=== PATIENT | male | born 1995 | race Hispanic/Latino ===

== ENCOUNTER 2025-01-29 10:19 | Emergency (ER) | payer SELFPAY ==
[2025-01-29] MEDS ORDERED: ONDANSETRON 4 MG/2 ML VIAL ONE (10:31)
[2025-01-29] MEDS ORDERED: MORPHINE 4 MG/ML SYR ONE (10:32)
[2025-01-29 10:48] LABS: Absolute Basophils 0.1 K/uL (0-0.5); Absolute Eosinophils 0.2 K/uL (0-0.5); Absolute Lymphocytes (CBC) 2.6 K/uL (0.7-4.9); Absolute Monocytes 0.7 K/uL (0.1-1.3); Eosinophils % 1.8 % (0-4.4); Hematocrit 45.7 % (39.6-49.0); Hemoglobin 15.6 g/dL (13.6-17.9); Lymphocytes % 20.6 % (15.3-44.8); MCH 28.6 pg (27.0-35.0); MCHC 34.1 g/dL (32.0-36.0); MCV 83.7 fL (80-100); MPV 9.4 fL (7.6-11.3); Monocytes % 5.6 % (3.3-12.3); Platelets 231 thou/uL (152-406); RBC Red Blood Cell Count 5.46 M/uL (4.33-5.43); Red Cell Distribution Width 14.1 % (12.1-15.2)
[2025-01-29 10:57] LABS: PT Prothrombin Time 11.5 SECONDS (10-13.0); PTT, Activated Partial Thromb 28.1 SECONDS (27.2-37.4); Protime INR 1.01
[2025-01-29 11:07] LABS: Anion Gap 8.7 mEq/L (5.0-15.0); Potassium 3.7 mEq/L (3.5-5.1); Troponin High Sensitivity 5.3 pg/mL (<58.9)
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
[2025-01-29] MEDS ORDERED: HYDROMORPHONE HCL 1 MG/ML INJ ONE (11:36)
[2025-01-29] MEDS ORDERED: NA CHLORIDE 0.9% 1,000 ML ONE (11:37)
--- NOTE | 2025-01-29 11:42 | RAD REPORT ---
EXAMINATION: XR Foot Right 3 View CLINICAL INDICATION: Male, 30 years old. [facility] Bed Name: 7 TECHNIQUE: 3 view radiographs of the right foot were obtained. COMPARISON: No prior exam. FINDINGS: No evidence of fracture or dislocation. Normal alignment. No evidence of arthropathy or oth er focal bone lesion. Soft tissue swelling along the lateral forefoot. No significant degenerative changes. IMPRESSION: No acute osseous abnormalities. Lateral soft tissue swelling.
[2025-01-29 13:26] VITALS: TEMP 98
[2025-01-29 13:28] VITALS: BP 160/104; O2SAT 100
--- NOTE | 2025-01-30 10:50 | EKG ---
Test Date: 2025-01-29 Test Time: 10:32:00 Clinical Sciences Professor: CARLEE MEASUREMENT RESULTS: Intervals: Rate: 67 IN: 146 QRSD: 82 QT: 386 QTc: 407 [place]: P: 56 IN: 146 QRS: 76 T: 29 INTERPRETIVE STATEMENTS: Normal sinus rhythm Normal ECG No previous ECG available for comparison Electronically Signed On 01-30-25 10:47:44 CDT by Sky Gaines
== END 2025-01-29 13:18 | disposition short-term general hospital (02) ==
LOC: ER 10:19
DX: T75.4XXA Electrocution, initial encounter (principal); T25.322A Burn of third degree of left foot, initial encounter; T25.321A Burn of third degree of right foot, initial encounter
CPT/HCPCS: 36415; 80048; 84484; 85025; 85610; 85730; 93005; 96361; 96374; 96375; 99285; J1171; J2405; J7030